=== PATIENT | female | born 1965 | race Caucasian/White ===

== ENCOUNTER 2017-07-06 07:08 | Day surgery (SDC) | payer BC ==
[~2017-07-06] VITALS: Ht 157.5 cm; Wt 55.8 kg
[2017-07-06 07:30] VITALS: Ht 157.5 cm; Wt 55.8 kg
[2017-07-06] MEDS ORDERED: RANITIDINE (08:01)
[2017-07-06] MEDS ORDERED: MULTIVITAMIN (08:01)
--- NOTE | 2017-07-06 08:59 | OPPN ---
Date/Time of Note Date/Time of Note DATE: 07/06/17 TIME: 08:58 Proc Note GI Procedure Date 07/06/17 Indication: screening/surveillance, diagnostic Pre-procedure Diagnosis Epigastric pain Screening colonoscopy Post-procedure Diagnosis 1. Gastritis 2. Mild diverticulosis 3. External hemorrhoids Procedure Performed: Endoscopy, Colonoscopy Surgeon see signature line Weatherization Director none Anesthesia Type: moderate sedation Tourniquet Time none EBL none Transfusion required none Biopsy 1: None Grafts/Implants none Tubes/Drains none Complication(s) none Disposition: home Procedure Description See dictated report DANIEL LY MD Jul 06, 2017 08:59
--- NOTE | 2017-07-06 08:59 | OPPN ---
Date/Time of Note Date/Time of Note DATE: 07/06/17 TIME: 08:58 Proc Note GI Procedure Date 07/06/17 Indication: screening/surveillance, diagnostic Pre-procedure Diagnosis Epigastric pain Screening colonoscopy Post-procedure Diagnosis 1. Gastritis 2. Mild diverticulosis 3. External hemorrhoids Procedure Performed: Endoscopy, Colonoscopy Surgeon see signature line Tax Services Specialist none Anesthesia Type: moderate sedation Tourniquet Time none EBL none Transfusion required none Biopsy 1: None Grafts/Implants none Tubes/Drains none Complication(s) none Disposition: home Procedure Description See dictated report DANIEL LY MD Jul 06, 2017 08:59
[2017-07-06] MEDS ORDERED: FENTAnyl 50 MCG/ML VIAL ONE (09:01)
[2017-07-06] MEDS ORDERED: MIDAZOLAM 1 MG/ML 2 ML INJ ONE ×2 (09:01→09:02)
[2017-07-06 09:32] VITALS: BP 106/58; RESP 14
--- NOTE | 2017-07-06 09:57 | GILP ---
DATE OF PROCEDURE: INDICATION: A 51-year-old female undergoing this procedure for persistent epigastric pain and colon oscopy for colon cancer screening. The patient also complains of nausea. The risk of the procedure , related and unrelated complications, anesthetic risks, alternatives discussed and informed consent was obtained. Sedative is . DESCRIPTION OF PROCEDURE: The patient was brought to the GI lab, sedated with Versed and fentanyl, total used 3 mg of Versed and 50 mcg of fentanyl. After optimum sedation, scope was passed with muc h ease into esophagus which was grossly within normal limits. Z line was at 50 cm. Stomach mucosa revealed gastritis, both chronic and acute multiple 4 biopsies obtained and to rule out H. pyl susi infection. Duodenum, first and second part was within normal limits. Retroversion in the stoma ch was normal. Scope was straightened out and removed with good patient tolerance. IMPRESSION 1. Normal esophagus. 2. Normal Z-line at 35 cm. 3. Gastritis. 4. Normal duodenum. PLAN: Review histopathology. If the H. pylori is negative or patient does not have significant gas tritis, then she needs further workup for abdominal pain in the form of a CAT scan of sonogram of th e abdomen. COLONOSCOPY REPORT: She was turned around, scope was passed with much ease into rectum, advanced th rough sigmoid, descending, transverse colon all the way into cecum. Appendiceal orifice was normal. IC valve was normal. While coming out, mucosa thoroughly inspected. She had associated 2 to 3 diverticula seen on the le ft side of the colon. The rest of the colon appeared normal, digital examination also was normal. She had external hemorrhoids. IMPRESSION: 1. External hemorrhoids. 2. Mild diverticulosis. 3. Negative all the way into cecum. 4. Clarity and cleanliness was good. PLAN: Stay on high fiber diet. Dictated By: DANIEL CARRASCO/ASHISH Conf#: [id number] DID#: [id number] CC: LIMA TEJEDA MD;*EndCC*
== END 2017-07-06 17:33 | disposition home or self-care (01) ==
LOC: GIL 07:08
PROVIDERS: ATTEND Internal Medicine Gastroenterology
DX: Z12.11 Encounter for screening for malignant neoplasm of colon (principal); K57.30 Diverticulosis of large intestine without perforation or abscess without bleeding; K64.4 Residual hemorrhoidal skin tags; K29.70 Gastritis, unspecified, without bleeding
CPT/HCPCS: 43239; 45378; 88305; 88312; J2250; J3010; Z7610

== ENCOUNTER 2017-11-22 18:43 | Emergency (ER) | END 2017-11-23 02:00 | disposition home or self-care (01) ==